=== PATIENT | male | born 1935 | race Hispanic/Latino ===

== ENCOUNTER 2017-06-28 06:30 | Day surgery (SDC) | payer MEDICARE, OTHER ==
[2017-06-28] MEDS ORDERED: NACL 0.9% 500 ML 500 ML IV SCH (07:00)
[2017-06-28 07:24] LABS: Basophils % (Auto) 0.7 % (0.0-1.8); Eosinophils % (Auto) 1.7 % (0.0-4.3); Hematocrit 38.6 % (35.5-45.6); Hemoglobin 13.1 gm/dl (11.8-15.2); Mean Corpuscular HGB Conc 34 % (32-34); Mean Corpuscular Hemoglobin 31 pg (28-32); Mean Corpuscular Volume 90 fl (84-94); Platelet Count 216 K/mm3 (140-440); Red Blood Count 4.31 M/mm3 (3.65-5.03); Red Cell Distribution Width 13.4 % (13.2-15.2); White Blood Count 8.9 K/mm3 (4.5-11.0)
[2017-06-28 07:34] LABS: INR 1.02 (0.87-1.13)
[2017-06-28 07:36] LABS: Anion Gap 16 mmol/L; BUN/Creatinine Ratio 23.33; Blood Urea Nitrogen 21 mg/dL (9-20); Calcium 8.6 mg/dL (8.4-10.2); Carbon Dioxide 23 mmol/L (22-30); Chloride 104.3 mmol/L (98-107); Glucose 115 mg/dL (75-100); Potassium 4.1 mmol/L (3.6-5.0); Sodium 139 mmol/L (137-145)
[2017-06-28] MEDS ORDERED: HEPARIN/NS 5000 UNIT/500ML(CATH LAB) 1,000 ML IR ONE (08:27)
[2017-06-28] MEDS ORDERED: NITROGLYCERIN SYRINGE 3 ML ONE (08:33)
[2017-06-28] MEDS: SUBLIMAZE ONE ×2 (08:37→08:41)
[2017-06-28] MEDS: XYLOCAINE 2% INFILTRATI ONE ×2 (08:38→08:43)
[2017-06-28] MEDS: VERSED ONE ×2 (08:38→08:41)
--- NOTE | 2017-06-28 09:47 | Cardiac Catherization Report ---
CARDIAC CATHETERIZATION REFERRING PHYSICIAN: Dr. Raj Pabon. 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 More recently, an echocardiogram at the end of May, which revealed severe aortic stenosis. He saw cardiac surgery set up for aortic valve replacement, possibly via TAVR. He is scheduled for coronary and bypass angiography in anticipation of valve replacement. Risks, benefits, alternatives discussed at length prior to obtaining informed consent. PROCEDURE IN DETAIL: The patient was brought to the catheterization lab in a postabsorptive state, prepped and draped in sterile fashion, 8 mL of 2% lidocaine used to anesthetize the right groin. A standard 5-Dominican sheath used to cannulate the right common femoral artery via modified Seldinger technique. All exchanges performed to exchange a J-tip guidewire. JL3.5 catheter used to engage left main. No dampening or ventricularization. Cineangiography performed in all projections. JR4 catheter used to cross the aortic valve under fluoroscopic guidance. Left ventriculography performed in 30 ROQUE and 30 SYRIAC projections via hand injections, catheter flushed. Manual pullback performed using continuous pressure monitoring. Next, catheter used to engage the right coronary. No dampening or ventricularization. Cineangiography performed in all projections. Next, catheter used to engage SVG to OM, angiography performed in all projections. Next, catheter used to engage the right brachiocephalic and wire was used to wire the right subclavian, LINCOLN, angiography was performed selectively. Next, a catheter was carefully removed from the brachiocephalic over a wire and used to engage the left subclavian and carefully advanced over wire, engaged the CHUA, angiography was performed in all projections. Next, catheter was removed carefully from the left subclavian and the aorta over a wire, sheath removed. Manual pressured used to achieve hemostasis. No complications. DATA: Aortic pressure: The patient remained in normal sinus rhythm/sinus bradycardia throughout the procedure. Aortic pressure is 145/80, LV pressure is 210. LVEDP of 25 mmHg. CORONARY ANATOMY: This is a right dominant system. Right coronary has a chronic total occlusion in the mid segment. The entire coronary tree is rather small in caliber and severely diseased. Left main is patent. LAD is occluded in the mid segment. Left circumflex is occluded in the mid segment. These are chronic total occlusions. There is a patent CHUA to the LAD. There is a patent SVG to the OM trunk and there is a patent LINCOLN to the right coronary. Left ventriculography demonstrates normal LV function, estimated at 55% to 60%. CONCLUSIONS: 1. Severe anvik coronary artery disease including 100% chronic total occlusion of the mid LAD, 100% chronic total occlusion of the mid left circumflex, 100% chronic total occlusion of mid right coronary, bypass angiography reveals a patent CHUA to LAD, patent LINCOLN to RCA, and patent SVG to OM trunk. 2. Preserved left ventricular systolic performance, estimated ejection fraction of 55% to 60%. 3. Severe aortic stenosis with a [id number] gradient of some 75-80 mmHg. At this point, the patient is clinically stable, will be discharged home, is already scheduled for outpatient valve surgery. Results of procedure explained in length to the patient and family. All questions and concerns were addressed. [facility]# [id number] ROSEMARY/JERRI
[2017-06-28 12:33] VITALS: BP 175/66
--- NOTE | 2017-06-28 14:18 | Short Stay Summary ---
Short Stay Documentation Date of service: 06/28/17 - History H&P: obtained from office - Allergies and Medications Current Medications: Allergies cortisone Allergy (Verified 05/26/15 07:30) STOMACH CRAMPS ezetimibe [From Vytorin] Allergy (Verified 05/26/15 07:30) Rash fluticasone Allergy (Verified 05/26/15 07:30) PROSTATE THIN URINE STREAM fluticasone propionate [From Advair Diskus] Allergy (Verified 05/26/15 07:30) PROSTATE THIN URINE STREAM meloxicam [From Mobic] Allergy (Verified 05/26/15 07:30) Rash salmeterol xinafoate [From Advair Diskus] Allergy (Verified 05/26/15 07:30) PROSTATE THIN URINE STREAM simvastatin [From Vytorin] Allergy (Verified 05/26/15 07:30) Rash sulfamethoxazole Allergy (Verified 05/26/15 07:30) Rash GLUE ON SILK AND NYLON TAPE Allergy (Uncoded 05/26/15 07:01) Rash SPIRIVA Allergy (Uncoded 05/26/15 07:01) PROSTATE THIN URINE STREAM Home Medications Medication Instructions Recorded Confirmed Last Taken Type Aspirin EC [Aspirin Enteric Coated 81 mg PO DAILY 05/26/15 06/28/17 06/28/17 07: 00 History TAB] Atenolol 50 mg PO DAILY 05/26/15 06/28/17 06/27/17 History Cholecalciferol Vit D3 [Vitamin D3] 1 each PO DAILY 05/26/15 06/28/17 06/27/17 History Clopidogrel Bisulfate [Clopidogrel] 75 mg PO DAILY 05/26/15 06/28/17 06/23/17 History Trandolapril 4 mg PO DAILY 05/26/15 06/28/17 06/27/17 History ISOSORBIDE MONOnitrate [Imdur ER] 30 mg PO DAILY 06/28/17 06/28/17 06/27/17 History Multivitamin Tab [Multiple Vitamin 1 each PO QDAY 06/28/17 06/28/17 06/27/17 History TAB (Theragran)] Active Medications Sodium Chloride (Nacl 0.9% 500 Ml) 500 mls @ 50 mls/hr IV DIRECT JOSIAH Stop: 06/28/17 16:59 Last Admin: 09/07/17 07:23 Dose: 50 mls/hr - Brief post op/procedure progress note Date of procedure: 06/28/17 Pre-op diagnosis: Post-op diagnosis: same Procedure: LHC- see cath report Anesthesia: local Estimated blood loss: none Condition: stable - Disposition Condition at discharge: Stable Disposition: DC-01 TO HOME OR SELFCARE - Discharge Diagnoses (1) Aortic stenosis Status: Chronic Qualifiers: Cardiac valve disease etiology: C (2) CAD (coronary artery disease) Status: Chronic Qualifiers: Coronary Disease-Associated Artery/Lesion type: C [place] vs. transplanted heart: N Associated angina: A (3) Hx of CABG Status: Chronic Short Stay Discharge Plan Activity: advance as tolerated Diet: low fat, low cholesterol, low salt Wound: per your surgeon's advice Follow up with: ALISA BEDOLLA MD [Primary Care Provider] - 7 Days ADRIEL MAYER MD [Staff Physician] - 7 Days Forms: CardCath PCI D/C Instructions
== END 2017-06-28 13:30 | disposition home or self-care (01) ==
LOC: CATHLABREC 06:30
PROVIDERS: ATTEND Internal Medicine
DX: I35.0 Nonrheumatic aortic (valve) stenosis (principal); I25.10 Atherosclerotic heart disease of native coronary artery without angina pectoris; I25.82 Chronic total occlusion of coronary artery; Z88.8 Allergy status to other drugs, medicaments and biological substances; Z91.09 Other allergy status, other than to drugs and biological substances; Z79.82 Long term (current) use of aspirin; Z79.01 Long term (current) use of anticoagulants; Z79.899 Other long term (current) drug therapy; Z95.1 Presence of aortocoronary bypass graft
CPT/HCPCS: 36415; 80048; 85025; 85610; 85730; 93005; 93010; 93459; J1644; J2250; J3010; J7040; Q9967

== ENCOUNTER 2019-01-27 09:18 | Emergency (ER) | payer MEDICARE, OTHER ==
[2019-01-27 09:30] VITALS: BP 140/49
--- NOTE | 2019-01-27 10:17 | Emergency Department Report ---
ED Lower Extremity HPI - General Chief Complaint: Extremity Injury, Lower Stated Complaint: RT FOOT PAIN/SWOLLEN Time Seen by Provider: 01/27/19 09:51 Source: patient Mode of arrival: Ambulatory Limitations: No Limitations - History of Present Illness Initial Comments: This is a 83-year-old male who presents to ED complaining of dry anterior and posterior foot pain for the last couple of days. This is essentially Sunday he is great creatinine child accidentally jumped on his foot. Patient's is up by Sunday he saw some swelling on the foot. Patient states he has pain to percussion of the foot as well as some redness. Patient is unsure if he sprain. He denies difficulty walking. He states pain with applied pressure to the foot he denies any loss of sensation MD Complaint: foot injury - Related Data Home Medications Medication Instructions Recorded Confirmed Last Taken AtorvaSTATin [Lipitor] 40 mg PO QHS 07/31/18 07/31/18 Unknown Ferrous Sulfate [Feosol 325 MG tab] 325 mg PO QDAY 07/31/18 07/31/18 Unknown Tamsulosin [Flomax] 0.4 mg PO QDAY 07/31/18 07/31/18 Unknown Previous Rx's Medication Instructions Recorded Last Taken Type Multivitamin Tab W-MINERAL 1 each PO QDAY tablet 08/04/18 Unknown Rx [Multiple Vitamin/Mineral (Theragran M)] Pantoprazole [Protonix TAB] 40 mg PO DAILY #30 tablet 08/04/18 Unknown Rx Acetaminophen [Acetaminophen TAB] 650 mg PO Q4H PRN #12 tablet 01/27/19 Unknown Rx Allergies Allergy/AdvReac Type Severity Reaction Status Date / Time cortisone Allergy STOMACH Verified 05/26/15 07:30 CRAMPS ezetimibe [From Vytorin] Allergy Rash Verified 05/26/15 07:30 fluticasone Allergy PROSTATE Verified 05/26/15 07:30 THIN URINE STREAM fluticasone propionate Allergy PROSTATE Verified 05/26/15 07:30 [From Advair Diskus] THIN URINE STREAM meloxicam [From Mobic] Allergy Rash Verified 05/26/15 07:30 salmeterol xinafoate Allergy PROSTATE Verified 05/26/15 07:30 [From Advair Diskus] THIN URINE STREAM simvastatin [From Vytorin] Allergy Rash Verified 05/26/15 07:30 sulfamethoxazole Allergy Rash Verified 05/26/15 07:30 GLUE ON SILK AND NYLON TAPE Allergy Rash Uncoded 05/26/15 07:01 SPIRIVA Allergy PROSTATE Uncoded 05/26/15 07:01 THIN URINE STREAM ED Review of Systems ROS: Stated complaint: RT FOOT PAIN/SWOLLEN Other details as noted in HPI Comment: All other systems reviewed and negative ED Past Medical Hx - Past Medical History Previous Medical History?: Yes Hx Hypertension: Yes 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 anemia. internal hemmrhoids - Surgical History Past Surgical History?: Yes Hx Coronary Stent: Yes (1989) Hx Open Heart Surgery: Yes (1990) Additional Surgical History: prostate, hernia,cataractOU, angioplasty, vasectomy, collar bone - Social History Smoking Status: Former Smoker Substance Use Type: None - Medications Home Medications: Home Medications Medication Instructions Recorded Confirmed Last Taken Type AtorvaSTATin [Lipitor] 40 mg PO QHS 07/31/18 07/31/18 Unknown History Ferrous Sulfate [Feosol 325 MG tab] 325 mg PO QDAY 07/31/18 07/31/18 Unknown History Tamsulosin [Flomax] 0.4 mg PO QDAY 07/31/18 07/31/18 Unknown History Multivitamin Tab W-MINERAL 1 each PO QDAY tablet 08/04/18 Unknown Rx [Multiple Vitamin/Mineral (Theragran M)] Pantoprazole [Protonix TAB] 40 mg PO DAILY #30 tablet 08/04/18 Unknown Rx Acetaminophen [Acetaminophen TAB] 650 mg PO Q4H PRN #12 tablet 01/27/19 Unknown Rx ED Physical Exam - General Limitations: No Limitations General appearance: alert, in no apparent distress - Head Head exam: Present: atraumatic, normocephalic - Eye Eye exam: Present: normal appearance - ENT ENT exam: Present: mucous membranes moist - Neck Neck exam: Present: normal inspection - Respiratory Respiratory exam: Present: normal lung sounds bilaterally. Absent: respiratory distress - Cardiovascular Cardiovascular Exam: Present: regular rate, normal rhythm. Absent: systolic murmur, diastolic murmur, rubs, gallop - GI/Abdominal GI/Abdominal exam: Present: soft, normal bowel sounds - Rectal Rectal exam: Present: deferred - Extremities Exam Extremities exam: Present: normal inspection - Back Exam Back exam: Present: normal inspection - Neurological Exam Neurological exam: Present: alert, oriented X3 - Psychiatric Psychiatric exam: Present: normal affect, normal mood - Skin Skin exam: Present: warm, dry, intact, normal color. Absent: rash ED Course Vital Signs 01/27/19 09:27 Temperature 98.8 F Pulse Rate 70 Respiratory 16 Rate Blood Pressure 140/49 O2 Sat by Pulse 97 Oximetry ED Lower Extremity MDM - Medical Decision Making 83-year-old male presents with arthralgia the right big toe of the foot Patient is able to ambulate without any problems. Mild tenderness palpation of the metatarsal joint of the week so. No deformity seen, no swelling. Vital signs are normal discussed x-ray findings patient. No acute findings on the x-ray. Patient is ambulating probably. Discuss heat therapy 3 times a day. Discussed the patient follow up with primary care physician. Critical care attestation.: If time is entered above; I have spent that time in minutes in the direct care of this critically ill patient, excluding procedure time. ED Disposition Clinical Impression: Right foot pain Disposition: - TO HOME OR SELFCARE Is pt being admited?: No Does the pt Need Aspirin: No Condition: Undetermined Instructions: Arthralgia (ED) Additional Instructions: Make sure to follow up with the primary care physician as discussed. Take all your medications as you've been prescribed. Apply heat 3 times a day to the affected toe If you have any worsening symptoms or develop new symptoms please return to ED immediately. Prescriptions: Acetaminophen [Acetaminophen TAB] 650 mg PO Q4H PRN #12 tablet PRN Reason: Pain MILD(1-3)/Fever >100.5/MARINA Referrals: [place] [Other] - 3-5 Days Forms: Work/School Release Form(ED) Time of Disposition: 11:18
--- NOTE | 2019-01-27 11:02 | XRay Report ---
Right foot: Pain near the first MP joint. AP and lateral views are included. There is extensive vascular calcification. Several surgical clips are identified in the distal medial leg. There may be mild edema around the midfoot but no focal finding. The visualized bones and joints appear generally intact and the bones are well-mineralized. Impressions: 1. Findings consistent with underlying metabolic disease such as diabetes. 2. Suspicion of mild midfoot soft tissue swelling with no focal findings in the bones or joints.
== END 2019-01-27 11:35 | disposition home or self-care (01) ==
LOC: ED 09:18
DX: M79.671 Pain in right foot (principal); M79.89 Other specified soft tissue disorders; I10 Essential (primary) hypertension; I25.2 Old myocardial infarction; M19.90 Unspecified osteoarthritis, unspecified site; Z87.891 Personal history of nicotine dependence; E78.5 Hyperlipidemia, unspecified; Z88.8 Allergy status to other drugs, medicaments and biological substances; Z88.2 Allergy status to sulfonamides; Z91.048 Other nonmedicinal substance allergy status; Z98.1 Arthrodesis status

== ENCOUNTER 2021-06-19 12:53 | Observation (INO) | payer MEDICARE, OTHER ==
[2021-06-19] MEDS ORDERED: ASPIRIN 325 MG TAB PO ONE (13:28)
--- NOTE | 2021-06-19 13:39 | Emergency Department Report ---
<PUSHPA TUCKER - Last Filed: 06/19/21 16:10> ED Chest Pain HPI - General Chief Complaint: Chest Pain Stated Complaint: PRESSURE/CHEST Time Seen by Provider: 06/19/21 13:37 - Related Data Home Medications Medication Instructions Recorded Confirmed Last Taken Ferrous Sulfate [Feosol 325 MG tab] 325 mg PO QDAY 07/31/18 06/20/21 Unknown Tamsulosin [Flomax] 0.4 mg PO QDAY 07/31/18 06/20/21 Unknown Cyanocobalamin/Folic Acid [Vitamin 1 each PO DAILY 06/20/21 06/20/21 Unknown J82-[id number] Acid Tablet] Losartan [Cozaar] 50 mg PO QDAY 06/20/21 06/20/21 Unknown Omeprazole Magnesium [Prilosec] 20 mg PO DAILY 06/20/21 06/20/21 Unknown Plavix 75 mg PO DAILY 06/20/21 06/20/21 Unknown Tolterodine [Detrol LA] 6 mg PO BID 06/20/21 06/20/21 Unknown amLODIPine 5 mg PO DAILY 06/20/21 06/20/21 Unknown Previous Rx's Medication Instructions Recorded Last Taken Type Multivitamin Tab W-MINERAL 1 each PO QDAY tablet 08/04/18 Unknown Rx [Multiple Vitamin/Mineral (Theragran M)] Aspirin [Aspirin BABY CHEW TAB] 81 mg PO QDAY #30 tab.chew 06/20/21 Unknown Rx AtorvaSTATin [Lipitor] 80 mg PO QHS #30 tab 06/20/21 Unknown Rx Finasteride [Proscar] 5 mg PO QDAY #30 tablet 06/20/21 Unknown Rx Allergies Allergy/AdvReac Type Severity Reaction Status Date / Time cortisone Allergy STOMACH Verified 06/19/21 13:51 CRAMPS ezetimibe [From Vytorin] Allergy Rash Verified 06/19/21 13:51 fluticasone Allergy PROSTATE Verified 06/19/21 13:51 THIN URINE STREAM fluticasone propionate Allergy PROSTATE Verified 06/19/21 13:51 [From Advair Diskus] THIN URINE STREAM meloxicam [From Mobic] Allergy Rash Verified 06/19/21 13:51 salmeterol xinafoate Allergy PROSTATE Verified 06/19/21 13:51 [From Advair Diskus] THIN URINE STREAM simvastatin [From Vytorin] Allergy Rash Verified 06/19/21 13:51 sulfamethoxazole Allergy Rash Verified 06/19/21 13:51 GLUE ON SILK AND NYLON TAPE Allergy Rash Uncoded 05/26/15 07:01 SPIRIVA Allergy PROSTATE Uncoded 05/26/15 07:01 THIN URINE STREAM ED Past Medical Hx - Medications Home Medications: Home Medications Medication Instructions Recorded Confirmed Last Taken Type Ferrous Sulfate [Feosol 325 MG tab] 325 mg PO QDAY 07/31/18 06/20/21 Unknown History Tamsulosin [Flomax] 0.4 mg PO QDAY 07/31/18 06/20/21 Unknown History Multivitamin Tab W-MINERAL 1 each PO QDAY tablet 08/04/18 06/20/21 Unknown Rx [Multiple Vitamin/Mineral (Theragran M)] Aspirin [Aspirin BABY CHEW TAB] 81 mg PO QDAY #30 tab.chew 06/20/21 Unknown Rx AtorvaSTATin [Lipitor] 80 mg PO QHS #30 tab 06/20/21 Unknown Rx Cyanocobalamin/Folic Acid [Vitamin 1 each PO DAILY 06/20/21 06/20/21 Unknown History J98-[id number] Acid Tablet] Finasteride [Proscar] 5 mg PO QDAY #30 tablet 06/20/21 Unknown Rx Losartan [Cozaar] 50 mg PO QDAY 06/20/21 06/20/21 Unknown History Omeprazole Magnesium [Prilosec] 20 mg PO DAILY 06/20/21 06/20/21 Unknown History Plavix 75 mg PO DAILY 06/20/21 06/20/21 Unknown History Tolterodine [Detrol LA] 6 mg PO BID 06/20/21 06/20/21 Unknown History amLODIPine 5 mg PO DAILY 06/20/21 06/20/21 Unknown History ED Course - Reevaluation(s) Reevaluation #1: 06/19/21 16:[address] Yandel Guajardo to admit to IMS for cardiac risk stratification, ekg changes will defer to inpatient team to 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, should they deem it necessary ED Medical Decision Making - Lab Data Result diagrams: 06/19/21 13:50 06/19/21 13:50 Vital Signs 06/19/21 06/19/21 06/19/21 13:22 13:23 13:51 Temperature 98.2 F 98.2 F Pulse Rate 72 72 69 Respiratory 19 18 14 Rate Blood Pressure 130/54 130/54 O2 Sat by Pulse 97 98 99 Oximetry 06/19/21 06/19/21 06/19/21 14:00 14:01 14:40 Temperature Pulse Rate 63 Respiratory 16 Rate Blood Pressure O2 Sat by Pulse 96 100 99 Oximetry Lab Results 06/19/21 06/19/21 06/19/21 Range/Units 13:50 13:50 13:55 WBC 11.2 H (4.5-11.0) K/mm3 RBC 4.15 (3.65-5.03) M/mm3 Hgb 12.9 (11.8-15.2) gm/dl Hct 37.7 (35.5-45.6) % MCV 91 (84-94) fl MCH 31 (28-32) pg MCHC 34 (32-34) % RDW 13.5 (13.2-15.2) % Plt Count 295 (140-440) K/mm3 Lymph % (Auto) 16.7 (13.4-35.0) % [place] % (Auto) 6.7 (0.0-7.3) % Eos % (Auto) 0.5 (0.0-4.3) % Baso % (Auto) 0.7 (0.0-1.8) % Lymph # (Auto) 1.9 (1.2-5.4) K/mm3 [place] # (Auto) 0.8 (0.0-0.8) K/mm3 Eos # (Auto) 0.1 (0.0-0.4) K/mm3 Baso # (Auto) 0.1 (0.0-0.1) K/mm3 Seg Neutrophils % 75.4 H (40.0-70.0) % Seg Neutrophils # 8.4 H (1.8-7.7) K/mm3 PT 14.0 (12.2-14.9) Sec. INR 1.02 (0.87-1.13) APTT 29.1 (24.2-36.6) Sec. D-Dimer 255.13 H (0-234) ng/mlDDU Sodium 136 L (137-145) mmol/L Potassium 4.4 (3.6-5.0) mmol/L Chloride 103.5 (98-107) mmol/L Carbon Dioxide 25 (22-30) mmol/L Anion Gap 12 mmol/L BUN 19 (9-20) mg/dL Creatinine 1.1 (0.8-1.3) mg/dL Estimated GFR > 60 ml/min BUN/Creatinine Ratio 17 % Glucose 111 H (75-100) mg/dL Calcium 9.3 (8.4-10.2) mg/dL Total Bilirubin 0.40 (0.1-1.2) mg/dL AST 19 (5-40) units/L ALT 15 (7-56) units/L Alkaline Phosphatase 75 (35-129) units/L Troponin T < 0.010 (0.00-0.029) ng/mL Total Protein 6.6 (6.3-8.2) g/dL Albumin 3.9 (3.9-5) g/dL Albumin/Globulin Ratio 1.4 % - EKG Data -: E[facility] Interpreted by [facility] - Radiology Data Radiology results: pending, report reviewed, image reviewed CTA CHEST WITH IV CONTRAST INDICATION: chest pain 100 ML OMNI 350. TECHNIQUE: Axial CT images were obtained through the chest after injection of 100 cc IV contrast. 3 plane MIP reconstructions were produced. All CT scans at this location are performed using CT dose reduction for ALARA by means of automated exposure control. COMPARISON: None available. FINDINGS: PULMONARY ARTERIES: No pulmonary emboli. THORACIC AORTA: Moderate vascular calcifications nonaneurysmal thoracic aorta HEART: Sternotomy, CABG and TAVR CORONARY ARTERIES: No significant calcification. PLEURA: No pleural effusion. No pneumothorax. LYMPH NODES: No significant adenopathy. LUNGS: No acute air space or interstitial dis ease. ADDITIONAL FINDINGS: None. UPPER ABDOMEN: No acute findings. Multiple calcified splenic granulomas SKELETAL STRUCTURES: No significant osseous abnormality. IMPRESSION: 1. No CT evidence for pulmonary embolism. 2. No acute findings. Signer Name: Rigo Buitrago MD Signed: 06/19/2021 2:43 PM Workstation Name: [id number] CHEST 2 VIEWS INDICATION / CLINICAL INFORMATION: chest pain/pressure. COMPARISON: None available. FINDINGS: SUPPORT DEVICES: None. HEART / MEDIASTINUM: Sternotomy, CABG and TAVR. Cardiac silhouette normal in size. Calcified right perihilar granulomas. LUNGS / PLEURA: Scattered calcified granulomas both lower lobes. No significant pulmonary or pleural abnormality. No pneumothorax. ADDITIONAL FINDINGS: No significant additional findings. IMPRESSION: 1. No acute findings. Signer Name: Riog Buitrago MD Signed: 06/19/2021 12:52 PM Workstation Name: [id number] ED Disposition Clinical Impression: Aortic stenosis, Acute chest pain CAD (coronary artery disease) Qualifiers: Coronary Disease-Associated Artery/Lesion type: [place] artery [place] vs. transplanted heart: [place] heart Disposition: ADMITTED INPATIENT Is pt being admited?: Yes Does the pt Need Aspirin: Yes Condition: Stable <ANITA CASTELLON Y. - Last Filed: 06/21/21 12:33> ED Chest Pain HPI - General Source: patient Mode of arrival: Ambulatory Limitations: No Limitations - History of Present Illness Initial Comments: 86-year-old male, history of CAD with CABG, aortic valve replacement, presents to ED with intermittent chest pain x3 days. Patient states he "worked a little too hard" in the yard last week. He reports onset of left arm pain 3 days ago. Patient states he thought it was just arthritis, so he went to play golf. States the pain then moved from the left arm to the chest, he began experiencing chest pressure. Patient reports alleviation of pressure with rest, becomes worse with exertion. He denies any shortness of breath, nausea or vomiting, diaphoresis. Patient denies tobacco use. He denies any leg pain or swelling. Denies any cough or fever. Patient is fully vaccinated against COVID-19. 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 ABRAHAM Complaint: chest pain -: days(s) (3) Onset: during exertion Pain Location: substernal Pain Radiation: none Severity: moderate Quality: pressure Consistency: intermittent Improves With: rest Worsens With: exertion re: denies: nausea, vomting, diaphoresis, dyspnea Other Symptoms: denies: leg swelling Heart Score - HEART Score History: Highly suspicious EKG: Non-specific Age: > 65 Risk factors: > 3 risk factors or hx of atherosclerotic disease Troponin: < normal limit HEART Score: 7 - EKG Read Time Time EKG Completed: 13:30 EKG Read Time: 13:33 ED Review of Systems ROS: Stated complaint: PRESSURE/CHEST Other details as noted in HPI Comment: All other systems reviewed and negative Constitutional: denies: chills, fever Respiratory: denies: cough, shortness of breath Cardiovascular: chest pain Gastrointestinal: denies: nausea, vomiting Musculoskeletal: other (Denies leg pain and swelling) ED Past Medical Hx - Past Medical History Hx Hypertension: Yes 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 anemia. internal hemmrhoids - Surgical History Past Surgical History?: Yes Hx Coronary Stent: Yes (1989) Hx Open Heart Surgery: Yes (1990) Additional Surgical History: prostate, hernia,cataractOU, angioplasty, vasectomy, collar bone - Social History Smoking Status: Former Smoker Substance Use Type: Alcohol ED Physical Exam - General Limitations: No Limitations General appearance: alert, in no apparent distress - Head Head exam: Present: atraumatic, normocephalic - Eye Eye exam: Present: normal appearance, EOMI - ENT ENT exam: Present: mucous membranes moist - Neck Neck exam: Present: normal inspection - Respiratory Respiratory exam: Present: normal lung sounds bilaterally. Absent: respiratory distress - Cardiovascular Cardiovascular Exam: Present: regular rate, normal rhythm - GI/Abdominal GI/Abdominal exam: Present: soft. Absent: distended, tenderness - Extremities Exam Extremities exam: Present: normal inspection. Absent: pedal edema, calf tenderness - Neurological Exam Neurological exam: Present: alert, oriented X3 - Psychiatric Psychiatric exam: Present: normal affect, normal mood - Skin Skin exam: Present: warm, dry, intact, normal color ED Course Vital Signs 06/19/21 06/19/21 06/19/21 13:22 13:23 13:51 Temperature 98.2 F 98.2 F Pulse Rate 72 72 69 Respiratory 19 18 14 Rate Blood Pressure 130/54 130/54 O2 Sat by Pulse 97 98 99 Oximetry 06/19/21 06/19/21 06/19/21 14:00 14:01 14:40 Temperature Pulse Rate 63 Respiratory 16 Rate Blood Pressure O2 Sat by Pulse 96 100 99 Oximetry 06/19/21 06/19/21 06/19/21 15:00 15:30 16:00 Temperature Pulse Rate Respiratory Rate Blood Pressure 152/50 152/50 152/50 O2 Sat by Pulse 99 99 98 Oximetry 06/19/21 06/19/21 06/19/21 16:30 17:00 17:30 Temperature Pulse Rate 77 Respiratory 14 Rate Blood Pressure 161/70 176/64 182/61 O2 Sat by Pulse 88 98 98 Oximetry 06/19/21 06/19/21 06/19/21 18:00 18:30 19:00 Temperature Pulse Rate 74 77 70 Respiratory 15 16 15 Rate Blood Pressure 182/61 182/61 182/61 O2 Sat by Pulse 99 99 99 Oximetry 06/19/21 06/19/21 06/19/21 19:30 20:00 20:30 Temperature Pulse Rate 68 68 78 Respiratory 12 13 13 Rate Blood Pressure 182/61 182/61 182/61 O2 Sat by Pulse 99 99 99 Oximetry ED Medical Decision Making - Lab Data Result diagrams: 06/20/21 02:43 06/20/21 02:43 - EKG Data -: EKG Interpreted by [facility] EKG shows normal: sinus rhythm, ST-T waves Rate: normal - EKG Data Interpretation: other (RBBB, old inferior infarct, prolonged NM) - Medical Decision Making 86-year-old male, history of CAD, aortic valve replacement, presents to ED with chest pain. Patient reports pain is exertional, substernal, with some associated left arm pain as well. EKG shows new right bundle branch block not present compared to EKG from 3 years ago. Troponin is negative. D-dimer was sent due to presence of right bundle branch block. D-dimer elevated, so CTA was ordered. Patient will require admission duration of his chest pain. Patient has been signed out to Dr. Tucker to follow-up on CTA results and admit to hospitalist. - Differential Diagnosis ACS, PE, pneumonia Critical care attestation.: If time is entered above; I have spent that time in minutes in the direct care of this critically ill patient, excluding procedure time.
--- NOTE | 2021-06-19 13:57 | XRay Report ---
CHEST 2 VIEWS INDICATION / CLINICAL INFORMATION: chest pain/pressure. COMPARISON: None available. FINDINGS: SUPPORT DEVICES: None. HEART / MEDIASTINUM: Sternotomy, CABG and TAVR. Cardiac silhouette normal in size. Calcified right pe rihilar granulomas. LUNGS / PLEURA: Scattered calcified granulomas both lower lobes. No significant pulmonary or pleural abnormality. No pneumothorax. ADDITIONAL FINDINGS: No significant additional findings. IMPRESSION: 1. No acute findings. Signer Name: Rigo Buitrago MD Signed: 06/19/2021 1:52 PM Workstation Name: [id number]
[2021-06-19 14:31] LABS: Basophils # (Auto) 0.1 K/mm3 (0.0-0.1); Basophils % (Auto) 0.7 % (0.0-1.8); Eosinophils # (Auto) 0.1 K/mm3 (0.0-0.4); Eosinophils % (Auto) 0.5 % (0.0-4.3); Hematocrit 37.7 % (35.5-45.6); Hemoglobin 12.9 gm/dl (11.8-15.2); Lymphocytes # (Auto) 1.9 K/mm3 (1.2-5.4); Lymphocytes % (Auto) 16.7 % (13.4-35.0); Mean Corpuscular HGB Conc 34 % (32-34); Mean Corpuscular Volume 91 fl (84-94); Monocytes # (Auto) 0.8 K/mm3 (0.0-0.8); Monocytes % (Auto) 6.7 % (0.0-7.3); Platelet Count 295 K/mm3 (140-440); Red Blood Count 4.15 M/mm3 (3.65-5.03); Red Cell Distribution Width 13.5 % (13.2-15.2)
[2021-06-19 14:42] LABS: INR 1.02 (0.87-1.13)
[2021-06-19 14:43] LABS: Partial Thromboplastin Time 29.1 Sec. (24.2-36.6)
[2021-06-19 14:52] LABS: Alanine Aminotransferase 15 units/L (7-56); Albumin 3.9 g/dL (3.9-5); BUN/Creatinine Ratio 17; Blood Urea Nitrogen 19 mg/dL (9-20); Calcium 9.3 mg/dL (8.4-10.2); Hemolysis Index 5
--- NOTE | 2021-06-19 15:48 | Cat Scan Report ---
CTA CHEST WITH IV CONTRAST INDICATION: chest pain 100 ML OMNI 350. TECHNIQUE: Axial CT images were obtained through the chest after injection of 100 cc IV contrast. 3 plane MIP re constructions were produced. All CT scans at this location are performed using CT dose reduction for ALARA by means of automated exposure control. COMPARISON: None available. FINDINGS: PULMONARY ARTERIES: No pulmonary emboli. THORACIC AORTA: Moderate vascular calcifications nonaneurysmal thoracic aorta HEART: Sternotomy, CABG and TAVR CORONARY ARTERIES: No significant calcification. PLEURA: No pleural effusion. No pneumothorax. LYMPH NODES: No significant adenopathy. LUNGS: No acute air space or interstitial disease. ADDITIONAL FINDINGS: None. UPPER ABDOMEN: No acute findings. Multiple calcified splenic granulomas SKELETAL STRUCTURES: No significant osseous abnormality. IMPRESSION: 1. No CT evidence for pulmonary embolism. 2. No acute findings. Signer Name: Rigo Buitrago MD Signed: 06/19/2021 3:43 PM Workstation Name: [id number]
[2021-06-19] MEDS ORDERED: ACETAMINOPHEN 325 MG TAB PO PRN ×2 (22:28→22:30)
[2021-06-19] MEDS ORDERED: ONDANSETRON 4 MG/2 ML INJ IV PRN (22:30)
[2021-06-19] MEDS ORDERED: oxyCODONE /ACETAMINOPHEN 5-325MG TAB PO PRN (22:30)
[2021-06-19] MEDS ORDERED: HYDROmorphone 1 MG/1 ML INJ IV PRN (22:30)
--- NOTE | 2021-06-19 22:35 | History and Physical Report ---
History of Present Illness Date of examination: 06/19/21 Date of admission: 06/19/21 17:29 Chief complaint: Chest pain for 3 days History of present illness: 86-year-old male with history of coronary artery disease, hyperlipidemia, anemia, GERD, BPH and recent aortic valve replacement through the femoral artery in 2017 comes in for chest pain of 3 days duration. Chest pain is intermittent and radiating to her left arm. Chest pain is about 5 on a scale of 1-10. Patient went to play golf and her left arm pain moved to the chest increasing is retrosternal chest pressure. Chest pressure is relieved with rest and becomes worse with exertion. No nausea vomiting or diaphoresis. No shortness of breath. Patient is fully vaccinated against Covid. Pleasant male. Follows with [facility] with Dr. Pabon Heart Score - HEART Score History: Highly suspicious EKG: Non-specific Age: > 65 Risk factors: > 3 risk factors or hx of atherosclerotic disease Troponin: < normal limit HEART Score: 7 - Past Medical History --Hypertension: Yes --Heart Attack/AMI: Yes --Arthritis: Yes (generalized) --Additional medical history: hyperlipidema. anemia. internal hemmrhoids - Surgical History Past Surgical History?: Yes --Coronary Stent: Yes (1989) --Open Heart Surgery: Yes (1990) --Additional Surgical History: prostate, hernia,cataractOU, angioplasty, vasectomy, collar bone - Social History Smoking Status: Former Smoker Substance Use Type: Alcohol - Medications Home Medications: Home Medications Medication Instructions Recorded Confirmed Last Taken Type AtorvaSTATin [Lipitor] 40 mg PO QHS 07/31/18 07/31/18 Unknown History Ferrous Sulfate [Feosol 325 MG tab] 325 mg PO QDAY 07/31/18 07/31/18 Unknown History Tamsulosin [Flomax] 0.4 mg PO QDAY 07/31/18 07/31/18 Unknown History Multivitamin Tab W-MINERAL 1 each PO QDAY tablet 08/04/18 Unknown Rx [Multiple Vitamin/Mineral (Theragran M)] Pantoprazole [Protonix TAB] 40 mg PO DAILY #30 tablet 08/04/18 Unknown Rx Acetaminophen [Acetaminophen TAB] 650 mg PO Q4H PRN #12 tablet 01/27/19 Unknown Rx Review of Systems Comment: All other systems reviewed and negative Constitutional: denies: chills, fever Respiratory: denies: cough, shortness of breath Cardiovascular: chest pain Gastrointestinal: denies: nausea, vomiting Musculoskeletal: other (Denies leg pain and swelling) Medications and Allergies Allergies Allergy/AdvReac Type Severity Reaction Status Date / Time cortisone Allergy STOMACH Verified 06/19/21 13:51 CRAMPS ezetimibe [From Vytorin] Allergy Rash Verified 06/19/21 13:51 fluticasone Allergy PROSTATE Verified 06/19/21 13:51 THIN URINE STREAM fluticasone propionate Allergy PROSTATE Verified 06/19/21 13:51 [From Advair Diskus] THIN URINE STREAM meloxicam [From Mobic] Allergy Rash Verified 06/19/21 13:51 salmeterol xinafoate Allergy PROSTATE Verified 06/19/21 13:51 [From Advair Diskus] THIN URINE STREAM simvastatin [From Vytorin] Allergy Rash Verified 06/19/21 13:51 sulfamethoxazole Allergy Rash Verified 06/19/21 13:51 GLUE ON SILK AND NYLON TAPE Allergy Rash Uncoded 05/26/15 07:01 SPIRIVA Allergy PROSTATE Uncoded 05/26/15 07:01 THIN URINE STREAM Home Medications Medication Instructions Recorded Confirmed Last Taken Type AtorvaSTATin [Lipitor] 40 mg PO QHS 07/31/18 07/31/18 Unknown History Ferrous Sulfate [Feosol 325 MG tab] 325 mg PO QDAY 07/31/18 07/31/18 Unknown History Tamsulosin [Flomax] 0.4 mg PO QDAY 07/31/18 07/31/18 Unknown History Multivitamin Tab W-MINERAL 1 each PO QDAY tablet 08/04/18 Unknown Rx [Multiple Vitamin/Mineral (Theragran M)] Pantoprazole [Protonix TAB] 40 mg PO DAILY #30 tablet 08/04/18 Unknown Rx Acetaminophen [Acetaminophen TAB] 650 mg PO Q4H PRN #12 tablet 01/27/19 Unknown Rx Exam - Constitutional Vitals: Temp Pulse Resp BP Pulse Ox 97.7 F 65 16 163/57 96 06/19/21 21:09 06/19/21 21:09 06/19/21 21:09 06/19/21 21:09 06/19/21 21:09 General appearance: Present: no acute distress, well-nourished - EENT Eyes: Present: PERRL ENT: hearing intact, clear oral mucosa - Neck Neck: Present: supple, normal ROM - Respiratory Respiratory effort: normal Respiratory: bilateral: CTA - Cardiovascular Heart rate: 78 Rhythm: regular Heart Sounds: Present: S1 & S2. Absent: rub, click - Extremities Extremities: pulses symmetrical, No edema Peripheral Pulses: within normal limits - Abdominal General gastrointestinal: Present: soft, non-tender, non-distended, normal bowel sounds Male genitourinary: Present: normal - Integumentary Integumentary: Present: clear, warm, dry - Musculoskeletal Musculoskeletal: gait normal, strength equal bilaterally - Psychiatric Psychiatric: appropriate mood/affect, intact judgment & insight - Neurologic Neurologic: CNII-XII intact, moves all extremities HEART Score - HEART Score EKG: Non-specific Age: > 65 Risk factors: > 3 risk factors or hx of atherosclerotic disease Troponin: Troponin T < 0.010 ng/mL (0.00-0.029) 06/19/21 19:24 Troponin: < normal limit Results - Labs CBC & Chem 7: 06/20/21 02:43 06/20/21 02:43 Labs: Laboratory Last Values WBC 11.2 K/mm3 (4.5-11.0) H 06/19/21 13:50 RBC 4.15 M/mm3 (3.65-5.03) 06/19/21 13:50 Hgb 12.9 gm/dl (11.8-15.2) 06/19/21 13:50 Hct 37.7 % (35.5-45.6) 06/19/21 13:50 MCV 91 fl (84-94) 06/19/21 13:50 MCH 31 pg (28-32) 06/19/21 13:50 MCHC 34 % (32-34) 06/19/21 13:50 RDW 13.5 % (13.2-15.2) 06/19/21 13:50 Plt Count 295 K/mm3 (140-440) 06/19/21 13:50 Lymph % (Auto) 16.7 % (13.4-35.0) 06/19/21 13:50 [place] % (Auto) 6.7 % (0.0-7.3) 06/19/21 13:50 Eos % (Auto) 0.5 % (0.0-4.3) 06/19/21 13:50 Baso % (Auto) 0.7 % (0.0-1.8) 06/19/21 13:50 Lymph # (Auto) 1.9 K/mm3 (1.2-5.4) 06/19/21 13:50 [place] # (Auto) 0.8 K/mm3 (0.0-0.8) 06/19/21 13:50 Eos # (Auto) 0.1 K/mm3 (0.0-0.4) 06/19/21 13:50 Baso # (Auto) 0.1 K/mm3 (0.0-0.1) 06/19/21 13:50 Seg Neutrophils % 75.4 % (40.0-70.0) H 06/19/21 13:50 Seg Neutrophils # 8.4 K/mm3 (1.8-7.7) H 06/19/21 13:50 PT 14.0 Sec. (12.2-14.9) 06/19/21 13:55 INR 1.02 (0.87-1.13) 06/19/21 13:55 APTT 29.1 Sec. (24.2-36.6) 06/19/21 13:55 D-Dimer 255.13 ng/mlDDU (0-234) H 06/19/21 13:55 Sodium 136 mmol/L (137-145) L 06/19/21 13:50 Potassium 4.4 mmol/L (3.6-5.0) 06/19/21 13:50 Chloride 103.5 mmol/L (98-107) 06/19/21 13:50 Carbon Dioxide 25 mmol/L (22-30) 06/19/21 13:50 Anion Gap 12 mmol/L 06/19/21 13:50 BUN 19 mg/dL (9-20) 06/19/21 13:50 Creatinine 1.1 mg/dL (0.8-1.3) 06/19/21 13:50 Estimated GFR > 60 ml/min 06/19/21 13:50 BUN/Creatinine Ratio 17 % 06/19/21 13:50 Glucose 111 mg/dL (75-100) H 06/19/21 13:50 Calcium 9.3 mg/dL (8.4-10.2) 06/19/21 13:50 Total Bilirubin 0.40 mg/dL (0.1-1.2) 06/19/21 13:50 AST 19 units/L (5-40) 06/19/21 13:50 ALT 15 units/L (7-56) 06/19/21 13:50 Alkaline Phosphatase 75 units/L (35-129) 06/19/21 13:50 Troponin T < 0.010 ng/mL (0.00-0.029) 06/19/21 19:24 Total Protein 6.6 g/dL (6.3-8.2) 06/19/21 13:50 Albumin 3.9 g/dL (3.9-5) 06/19/21 13:50 Albumin/Globulin Ratio 1.4 % 06/19/21 13:50 - Imaging and Cardiology EKG: report reviewed (EKG with no acute ST-T wave changes) Imaging and Cardiology: Chest x-ray No acute findings Chest CTA No CT evidence of pulmonary embolism No acute findings Dorman/IV: Voiding Method Urinal Assessment and Plan Advance Directives: Yes (Full code) VTE prophylaxis?: Chemical Plan of care discussed with patient/family: Yes - Patient Problems (1) Acute coronary syndrome Current Visit: Yes Status: Acute Plan to address problem: For Lexiscan in the morning Serial cardiac enzymes (2) Coronary artery disease Current Visit: Yes Status: Chronic Qualifiers: Coronary Disease-Associated Artery/Lesion type: [place] artery [place] vs. transplanted heart: [place] heart Plan to address problem: Patient had CABG in the past Continue aspirin and statins (3) Hyperlipidemia Current Visit: Yes Status: Chronic Qualifiers: Hyperlipidemia type: mixed hyperlipidemia Qualified Code(s): E78.2 - Mixed hyperlipidemia Plan to address problem: On statins-Lipitor 40 mg p.o. daily (4) BPH (benign prostatic hyperplasia) Current Visit: Yes Status: Chronic Qualifiers: Lower urinary tract symptom presence: symptoms present Plan to address problem: Continue Flomax (5) GERD (gastroesophageal reflux disease) Current Visit: Yes Status: Acute (6) GERD (gastroesophageal reflux disease) Current Visit: Yes Status: Chronic Plan to address problem: On PPIs (7) Anemia Current Visit: Yes Status: Chronic Plan to address problem: On ferrous gluconate (8) DVT prophylaxis Current Visit: Yes Status: Acute Plan to address problem: On anticoagulation and GI prophylaxis
[2021-06-20 03:47] LABS: Basophils # (Auto) 0.1 K/mm3 (0.0-0.1); Basophils % (Auto) 0.9 % (0.0-1.8); Eosinophils # (Auto) 0.2 K/mm3 (0.0-0.4); Eosinophils % (Auto) 1.2 % (0.0-4.3); Hematocrit 40.3 % (35.5-45.6); Hemoglobin 13.5 gm/dl (11.8-15.2); Lymphocytes # (Auto) 1.9 K/mm3 (1.2-5.4); Mean Corpuscular HGB Conc 34 % (32-34); Mean Corpuscular Volume 91 fl (84-94); Monocytes # (Auto) 0.9 K/mm3 (0.0-0.8); Monocytes % (Auto) 6.9 % (0.0-7.3); Platelet Count 272 K/mm3 (140-440); Red Blood Count 4.42 M/mm3 (3.65-5.03); Red Cell Distribution Width 13.5 % (13.2-15.2)
[2021-06-20 03:54] LABS: Alanine Aminotransferase 15 units/L (7-56); Albumin 3.8 g/dL (3.9-5); BUN/Creatinine Ratio 16; Blood Urea Nitrogen 18 mg/dL (9-20); Calcium 9.5 mg/dL (8.4-10.2); Hemolysis Index 4
[2021-06-20] MEDS ORDERED: REGADENOSON 0.4 MG/5 ML INJ IV ONE (07:37)
--- NOTE | 2021-06-20 08:45 | Consultation ---
History of Present Illness Consult date: 06/20/21 Requesting physician: JONY GARCIA Consult reason: chest pain History of present illness: 86-year-old male with history of bypass surgery showed patent bypass grafts in 2015 had aortic valve replacement via TVAR in 2017 Has hypertension hyperlipidemia coronary arterial disease is a very active person. Played golf and walked a mile. Patient has some chest discomfort beginning of his mile walk that got better with activity. But has been persistent in nature similar to what he had prior to his valve replacement. Cardiac enzymes have been negative. Denies any fever chill has been vaccinated for COVID-19. This morning patient symptoms have almost resolved still some mild chest pressure that sometimes would worsen with touching of the chest wall with EKG leads. Past History Past Medical History: CAD (bypass), hypertension, hyperlipidemia Past Surgical History: CABG, Other (tavr in 2017) Social history: denies: smoking, alcohol abuse, prescription drug abuse Family history: denies: no significant family history Medications and Allergies Allergies Allergy/AdvReac Type Severity Reaction Status Date / Time cortisone Allergy STOMACH Verified 06/19/21 13:51 CRAMPS ezetimibe [From Vytorin] Allergy Rash Verified 06/19/21 13:51 fluticasone Allergy PROSTATE Verified 06/19/21 13:51 THIN URINE STREAM fluticasone propionate Allergy PROSTATE Verified 06/19/21 13:51 [From Advair Diskus] THIN URINE STREAM meloxicam [From Mobic] Allergy Rash Verified 06/19/21 13:51 salmeterol xinafoate Allergy PROSTATE Verified 06/19/21 13:51 [From Advair Diskus] THIN URINE STREAM simvastatin [From Vytorin] Allergy Rash Verified 06/19/21 13:51 sulfamethoxazole Allergy Rash Verified 06/19/21 13:51 GLUE ON SILK AND NYLON TAPE Allergy Rash Uncoded 05/26/15 07:01 SPIRIVA Allergy PROSTATE Uncoded 05/26/15 07:01 THIN URINE STREAM Home Medications Medication Instructions Recorded Confirmed Last Taken Type Ferrous Sulfate [Feosol 325 MG tab] 325 mg PO QDAY 07/31/18 06/20/21 Unknown History Tamsulosin [Flomax] 0.4 mg PO QDAY 07/31/18 06/20/21 Unknown History Multivitamin Tab W-MINERAL 1 each PO QDAY tablet 08/04/18 06/20/21 Unknown Rx [Multiple Vitamin/Mineral (Theragran M)] Acetaminophen [Acetaminophen TAB] 650 mg PO Q4H PRN #12 tablet 01/27/19 06/20/21 Unknown Rx Cyanocobalamin/Folic Acid [Vitamin 1 each PO DAILY 06/20/21 06/20/21 Unknown History A70-Cohpq Acid Tablet] Losartan [Cozaar] 50 mg PO QDAY 06/20/21 06/20/21 Unknown History Omeprazole Magnesium [Prilosec] 20 mg PO DAILY 06/20/21 06/20/21 Unknown History Plavix 75 mg PO DAILY 06/20/21 06/20/21 Unknown History Tolterodine [Detrol LA] 6 mg PO BID 06/20/21 06/20/21 Unknown History amLODIPine 5 mg PO DAILY 06/20/21 06/20/21 Unknown History Active Meds: Active Medications Acetaminophen (Acetaminophen 325 Mg Tab) 650 mg PO Q4H PRN PRN Reason: Pain MILD(1-3)/Fever >100.5/MARINA Atorvastatin Calcium (Atorvastatin 40 Mg Tab) 40 mg PO QHS JOSIAH Enoxaparin Sodium (Enoxaparin 40 Mg/0.4 Ml Inj) 40 mg SUB-Q QDAY JOSIAH Ferrous Sulfate (Ferrous Sulfate 325 Mg Tab) 325 mg PO QDAY JOSIAH Hydromorphone HCl (Hydromorphone 1 Mg/1 Ml Inj) 0.5 mg IV Q3H PRN PRN Reason: Pain , Severe (7-10) Ondansetron HCl (Ondansetron 4 Mg/2 Ml Inj) 4 mg IV Q8H PRN PRN Reason: Nausea And Vomiting Oxycodone/Acetaminophen (Oxycodone /Acetaminophen 5-325mg Tab) 1 tab PO Q6H PRN PRN Reason: Pain, Moderate (4-6) Pantoprazole Sodium (Pantoprazole 40 Mg Tab) 40 mg PO DAILY JOSIAH Sodium Chloride (Sodium Chloride 0.9% 10 Ml Flush Syringe) 10 ml IV BID JOSIAH Sodium Chloride (Sodium Chloride 0.9% 10 Ml Flush Syringe) 10 ml IV PRN PRN PRN Reason: LINE FLUSH Tamsulosin HCl (Tamsulosin 0.4 Mg Cap) 0.4 mg PO QDAY JOSIAH Review of Systems All systems: negative (as per hpi) Physical Examination Vital Signs Temp Pulse Resp BP Pulse Ox 98.2 F 72 19 130/54 97 06/19/21 13:22 06/19/21 13:22 06/19/21 13:22 06/19/21 13:22 06/19/21 13:22 General appearance: no acute distress, well-nourished HEENT: Positive: PERRL, Mucus Membranes Moist Neck: Positive: neck supple, trachea midline Cardiac: Positive: Reg Rate and Rhythm, S1/S2. Negative: Audible Murmur Lungs: Positive: clear to auscultation, Normal Breath Sounds Neuro: Positive: Grossly Intact Abdomen: Positive: Soft, Active Bowel Sounds. Negative: Tender, Distended Male genitourinary: Positive: normal Skin: Positive: Clear Incision: Cardiac Cath Site Musculoskeletal: No Pain, Normal Range of Motion Extremities: Present: normal. Absent: edema Results 06/20/21 02:43 06/20/21 02:43 Cardiac Enzymes 06/19/21 06/20/21 06/20/21 Range/Units 13:50 02:43 02:43 AST 19 17 (5-40) units/L CK-MB (CK-2) 3.0 (0.0-4.0) ng/mL Coagulation 06/19/21 Range/Units 13:55 PT 14.0 (12.2-14.9) Sec. INR 1.02 (0.87-1.13) APTT 29.1 (24.2-36.6) Sec. CBC 06/19/21 06/20/21 Range/Units 13:50 02:43 WBC 11.2 H 12.6 H (4.5-11.0) K/mm3 RBC 4.15 4.42 (3.65-5.03) M/mm3 Hgb 12.9 13.5 (11.8-15.2) gm/dl Hct 37.7 40.3 (35.5-45.6) % Plt Count 295 272 (140-440) K/mm3 Lymph # (Auto) 1.9 1.9 (1.2-5.4) K/mm3 [place] # (Auto) 0.8 0.9 H (0.0-0.8) K/mm3 Eos # (Auto) 0.1 0.2 (0.0-0.4) K/mm3 Baso # (Auto) 0.1 0.1 (0.0-0.1) K/mm3 Comprehensive Metabolic Panel 06/19/21 06/20/21 Range/Units 13:50 02:43 Sodium 136 L 141 (137-145) mmol/L Potassium 4.4 4.2 (3.6-5.0) mmol/L Chloride 103.5 105.2 (98-107) mmol/L Carbon Dioxide 25 27 (22-30) mmol/L BUN 19 18 (9-20) mg/dL Creatinine 1.1 1.1 (0.8-1.3) mg/dL Glucose 111 H 99 (75-100) mg/dL Calcium 9.3 9.5 (8.4-10.2) mg/dL AST 19 17 (5-40) units/L ALT 15 15 (7-56) units/L Alkaline Phosphatase 75 76 (35-129) units/L Total Protein 6.6 6.6 (6.3-8.2) g/dL Albumin 3.9 3.8 L (3.9-5) g/dL - Imaging and Cardiology Echo: pending EKG interpretations - Telemetry EKG Rhythm: Sinus Rhythm (nsr rbbb) Assessment and Plan stress test showed normal myocardial perfusion and normal lv function and chest pain free, atypical chest pain possible gi, cont current meds and followup with dr pierre in one week - Patient Problems (1) S/p TAVR (transcatheter aortic valve replacement), bioprosthetic Current Visit: Yes Status: Chronic (2) Acute chest pain Current Visit: Yes Status: Acute (3) GERD (gastroesophageal reflux disease) Current Visit: Yes Status: Acute (4) BPH (benign prostatic hyperplasia) Current Visit: Yes Status: Chronic Qualifiers: Lower urinary tract symptom presence: symptoms present (5) Coronary artery disease Current Visit: Yes Status: Chronic Qualifiers: Coronary Disease-Associated Artery/Lesion type: [place] artery [place] vs. transplanted heart: [place] heart (6) HTN (hypertension) Current Visit: No Status: Chronic (7) Hx of CABG Current Visit: No Status: Chronic (8) Hyperlipidemia Current Visit: No Status: Chronic Qualifiers: Hyperlipidemia type: mixed hyperlipidemia Qualified Code(s): E78.2 - Mixed hyperlipidemia
[2021-06-20] MEDS ORDERED: PANTOPRAZOLE 40 MG TAB PO SCH (10:00)
[2021-06-20] MEDS ORDERED: FERROUS SULFATE 325 MG TAB PO SCH (10:00)
[2021-06-20] MEDS ORDERED: FINASTERIDE 5 MG TAB PO SCH (10:00)
[2021-06-20] MEDS ORDERED: LOSARTAN 50 MG TAB PO SCH (10:00)
[2021-06-20] MEDS ORDERED: ENOXAPARIN 40 MG/0.4 ML INJ SUB-Q SCH (10:00)
[2021-06-20] MEDS ORDERED: TAMSULOSIN 0.4 MG CAP PO SCH (10:00)
[2021-06-20] MEDS ORDERED: ASPIRIN 81 MG TAB CHEW PO SCH (10:00)
[2021-06-20] MEDS ORDERED: OXYBUTYNIN 5 MG TAB PO SCH (10:00)
[2021-06-20] MEDS ORDERED: CLOPIDOGREL 75 MG TAB PO SCH (10:00)
[2021-06-20] MEDS ORDERED: amLODIPine 5 MG TAB PO SCH (10:00)
--- NOTE | 2021-06-20 10:53 | Progress Note ---
Assessment and Plan Assessment and plan: - Patient Problems (1) Acute coronary syndrome Current Visit: Yes Status: Acute Plan to address problem: For Lexiscan in the morning Serial cardiac enzymes (2) Coronary artery disease Current Visit: Yes Status: Chronic Qualifiers: Coronary Disease-Associated Artery/Lesion type: [place] artery [place] vs. transplanted heart: [place] heart Plan to address problem: Patient had CABG in the past Continue aspirin and statins (3) Hyperlipidemia Current Visit: Yes Status: Chronic Qualifiers: Hyperlipidemia type: mixed hyperlipidemia Qualified Code(s): E78.2 - Mixed hyperlipidemia Plan to address problem: On statins-Lipitor 40 mg p.o. daily (4) BPH (benign prostatic hyperplasia) Current Visit: Yes Status: Chronic Qualifiers: Lower urinary tract symptom presence: symptoms present Plan to address problem: Continue Flomax (5) GERD (gastroesophageal reflux disease) Current Visit: Yes Status: Acute (6) GERD (gastroesophageal reflux disease) Current Visit: Yes Status: Chronic Plan to address problem: On PPIs (7) Anemia Current Visit: Yes Status: Chronic Plan to address problem: On ferrous gluconate (8) DVT prophylaxis Current Visit: Yes Status: Acute Plan to address problem: On anticoagulation and GI prophylaxis Hospitalist Physical - Constitutional Vitals: Temp Pulse Resp BP Pulse Ox 97.8 F 67 17 140/76 97 06/20/21 10:46 06/20/21 10:46 06/20/21 10:46 06/20/21 10:46 06/20/21 10:46 General appearance: Present: no acute distress, well-nourished HEART Score - HEART Score EKG: Non-specific Age: > 65 Risk factors: > 3 risk factors or hx of atherosclerotic disease Troponin: Troponin T < 0.010 ng/mL (0.00-0.029) 06/20/21 02:43 Troponin: < normal limit Results - Labs CBC & Chem 7: 06/20/21 02:43 06/20/21 02:43 Labs: Laboratory Last Values WBC 12.6 K/mm3 (4.5-11.0) H 06/20/21 02:43 RBC 4.42 M/mm3 (3.65-5.03) 06/20/21 02:43 Hgb 13.5 gm/dl (11.8-15.2) 06/20/21 02:43 Hct 40.3 % (35.5-45.6) 06/20/21 02:43 MCV 91 fl (84-94) 06/20/21 02:43 MCH 31 pg (28-32) 06/20/21 02:43 MCHC 34 % (32-34) 06/20/21 02:43 RDW 13.5 % (13.2-15.2) 06/20/21 02:43 Plt Count 272 K/mm3 (140-440) 06/20/21 02:43 Lymph % (Auto) 15.0 % (13.4-35.0) 06/20/21 02:43 [place] % (Auto) 6.9 % (0.0-7.3) 06/20/21 02:43 Eos % (Auto) 1.2 % (0.0-4.3) 06/20/21 02:43 Baso % (Auto) 0.9 % (0.0-1.8) 06/20/21 02:43 Lymph # (Auto) 1.9 K/mm3 (1.2-5.4) 06/20/21 02:43 [place] # (Auto) 0.9 K/mm3 (0.0-0.8) H 06/20/21 02:43 Eos # (Auto) 0.2 K/mm3 (0.0-0.4) 06/20/21 02:43 Baso # (Auto) 0.1 K/mm3 (0.0-0.1) 06/20/21 02:43 Seg Neutrophils % 76.0 % (40.0-70.0) H 06/20/21 02:43 Seg Neutrophils # 9.6 K/mm3 (1.8-7.7) H 06/20/21 02:43 PT 14.0 Sec. (12.2-14.9) 06/19/21 13:55 INR 1.02 (0.87-1.13) 06/19/21 13:55 APTT 29.1 Sec. (24.2-36.6) 06/19/21 13:55 D-Dimer 255.13 ng/mlDDU (0-234) H 06/19/21 13:55 Sodium 141 mmol/L (137-145) 06/20/21 02:43 Potassium 4.2 mmol/L (3.6-5.0) 06/20/21 02:43 Chloride 105.2 mmol/L (98-107) 06/20/21 02:43 Carbon Dioxide 27 mmol/L (22-30) 06/20/21 02:43 Anion Gap 13 mmol/L 06/20/21 02:43 BUN 18 mg/dL (9-20) 06/20/21 02:43 Creatinine 1.1 mg/dL (0.8-1.3) 06/20/21 02:43 Estimated GFR > 60 ml/min 06/20/21 02:43 BUN/Creatinine Ratio 16 % 06/20/21 02:43 Glucose 99 mg/dL (75-100) 06/20/21 02:43 Calcium 9.5 mg/dL (8.4-10.2) 06/20/21 02:43 Total Bilirubin 0.40 mg/dL (0.1-1.2) 06/20/21 02:43 AST 17 units/L (5-40) 06/20/21 02:43 ALT 15 units/L (7-56) 06/20/21 02:43 Alkaline Phosphatase 76 units/L (35-129) 06/20/21 02:43 Total Creatine Kinase 77 units/L (55-170) 06/20/21 02:43 CK-MB (CK-2) 3.0 ng/mL (0.0-4.0) 06/20/21 02:43 CK-MB (CK-2) Rel Index 3.8 (0-4) 06/20/21 02:43 Troponin T < 0.010 ng/mL (0.00-0.029) 06/20/21 02:43 Total Protein 6.6 g/dL (6.3-8.2) 06/20/21 02:43 Albumin 3.8 g/dL (3.9-5) L 06/20/21 02:43 Albumin/Globulin Ratio 1.4 % 06/20/21 02:43 [place]/IV: Voiding Method Toilet Active Medications - Current Medications Current Medications: Generic Name Dose Route Start Last Admin Trade Name Freq PRN Reason Stop Dose Admin Acetaminophen 650 mg 06/19/21 22:28 Acetaminophen 325 Mg Tab PO Q4H PRN Pain MILD(1-3)/Fever >100.5/MARINA Amlodipine Besylate 5 mg 06/20/21 10:00 06/20/21 10:20 Amlodipine 5 Mg Tab PO 5 mg QDAY JOSIAH Administration Aspirin 81 mg 06/20/21 10:00 06/20/21 10:21 Aspirin 81 Mg Tab Chew PO 81 mg QDAY JOSIAH Administration Atorvastatin Calcium 80 mg 06/20/21 22:00 Atorvastatin 40 Mg Tab PO QHS JOSIAH Clopidogrel Bisulfate 75 mg 06/20/21 10:00 06/20/21 10:25 Clopidogrel 75 Mg Tab PO Not Given QDAY JOSIAH Enoxaparin Sodium 40 mg 06/20/21 10:00 06/20/21 10:17 Enoxaparin 40 Mg/0.4 Ml Inj SUB-Q 40 mg QDAY JOSIAH Administration Ferrous Sulfate 325 mg 06/20/21 10:00 06/20/21 10:17 Ferrous Sulfate 325 Mg Tab PO 325 mg QDAY JOSIAH Administration Finasteride 5 mg 06/20/21 10:00 06/20/21 10:27 Finasteride 5 Mg Tab PO Not Given QDAY JOSIAH Hydromorphone HCl 0.5 mg 06/19/21 22:30 Hydromorphone 1 Mg/1 Ml Inj IV Q3H PRN Pain , Severe (7-10) Losartan Potassium 50 mg 06/20/21 10:00 06/20/21 10:21 Losartan 50 Mg Tab PO 50 mg BID JOSIAH Administration Ondansetron HCl 4 mg 06/19/21 22:30 Ondansetron 4 Mg/2 Ml Inj IV Q8H PRN Nausea And Vomiting Oxybutynin Chloride 5 mg 06/20/21 10:00 06/20/21 10:25 Oxybutynin 5 Mg Tab PO Not Given BID JOSIAH Oxycodone/Acetaminophen 1 tab 06/19/21 22:30 Oxycodone /Acetaminophen 5-325mg Tab PO Q6H PRN Pain, Moderate (4-6) Pantoprazole Sodium 40 mg 06/20/21 10:00 06/20/21 10:17 Pantoprazole 40 Mg Tab PO 40 mg DAILY JOSIAH Administration Sodium Chloride 10 ml 06/20/21 10:00 06/20/21 10:27 Sodium Chloride 0.9% 10 Ml Flush Syringe IV Not Given BID JOSIAH Sodium Chloride 10 ml 06/19/21 22:30 Sodium Chloride 0.9% 10 Ml Flush Syringe IV PRN PRN LINE FLUSH Tamsulosin HCl 0.4 mg 06/20/21 10:00 06/20/21 10:17 Tamsulosin 0.4 Mg Cap PO 0.4 mg QDAY JOSIAH Administration
--- NOTE | 2021-06-20 11:55 | Discharge Summary ---
Providers - Providers Date of Admission: 06/19/21 17:29 Date of discharge: 06/20/21 Attending physician: GAY ABARCA 06/19/21 22:30 Consult to Physician [CONS] Routine Comment: Consulting Provider: ADRIEL PABON Physician Instructions: Reason For Exam: Acute coronary syndrome Primary care physician: ADRIEL PABON Hospitalization Reason for admission: Intermittent chest pain of 3 days duration Condition: Stable Pertinent studies: Chest x-ray CTA chest Stress test Hospital course: Chest pain for 3 days 86-year-old male with history of coronary artery disease, hyperlipidemia, anemia, GERD, BPH and recent aortic valve replacement through the femoral artery in 2017 comes in for chest pain of 3 days duration. Chest pain is intermittent and radiating to her left arm. Chest pain is about 5 on a scale of 1-10. Patient went to play golf and her left arm pain moved to the chest increasing is retrosternal chest pressure. Chest pressure is relieved with rest and becomes worse with exertion. No nausea vomiting or diaphoresis. No shortness of breath. Patient is fully vaccinated against Covid. Follows with [facility] with Dr. Pabon. Patient was admitted appropriately managed evaluated by process control tech, subsequently underwent stress test which was negative for ischemia, noncardiac chest pain probably secondary to GERD, patient is already on Protonix Cardiology optimize medications, cleared for discharge advised to follow-up with primary care physician in private process control tech per schedule Today he is comfortable no new complaints vital signs stable physical examination prior to discharge is unremarkable Patient is hemodynamically and clinically stable at discharge If he has recurrent chest pain advised to see private GI for further evaluation and management Discharge diagnosis: -- Acute coronary syndrome Current Visit: Yes Status: Acute For Lexiscan in the morning Serial cardiac enzymes -- Coronary artery disease s/p CABG Current Visit: Yes Status: Chronic Patient had CABG in the past Continue aspirin and statins -- S/p TAVR (transcatheter aortic valve replacement), bioprosthetic Current Visit: Yes Status: Chronic -- Hyperlipidemia Current Visit: Yes Status: Chronic On statins-Lipitor 80 mg p.o. daily -- BPH (benign prostatic hyperplasia) Current Visit: Yes Status: Chronic Continue Flomax --GERD (gastroesophageal reflux disease) Current Visit: Yes Status: Acute --Anemia Current Visit: Yes Status: Chronic Plan to address problem: On ferrous gluconate Stable at discharge Final Discharge Diagnosis (Prints w/discharge instructions): Aortic valve replacement[TAVR]. Atypical chest pain. Stress test negative. Coronary artery disease. s/p CABG. BPH. Hypertension. Dyslipidemia Time spent for discharge: 35 min Core Measure Documentation - Palliative Care Palliative Care/ Comfort Measures: Not Applicable - Core Measures Any of the following diagnoses?: none Exam - Constitutional Vitals: Temp Pulse Resp BP Pulse Ox 97.8 F 67 17 140/76 97 06/20/21 10:46 06/20/21 10:46 06/20/21 10:46 06/20/21 10:46 06/20/21 10:46 General appearance: Present: no acute distress, well-nourished - EENT Eyes: Present: PERRL, EOM intact - Neck Neck: Present: supple, normal ROM - Respiratory Respiratory effort: normal Respiratory: bilateral: diminished, negative: rales, rhonchi, wheezing - Cardiovascular Rhythm: regular Heart Sounds: Present: S1 & S2 - Extremities Extremities: no ischemia, No edema - Abdominal General gastrointestinal: Present: soft, non-tender, non-distended, normal bowel sounds - Integumentary Integumentary: Present: clear, warm - Musculoskeletal Musculoskeletal: strength equal bilaterally - Psychiatric Psychiatric: appropriate mood/affect, cooperative - Neurologic Neurologic: CNII-XII intact, moves all extremities Plan Activity: advance as tolerated Diet: other (Cardiac diet) Additional Instructions: Advised to continue all the home medications as before. If you have worsening symptoms contact MD or go to emergency room as needed. If your symptoms do not improve you may need to see private GI to evaluate for GI causes of chest pain as needed Follow up with: ADRIEL PABON MD [Primary Care Provider] - 3-5 Days Prescriptions: Aspirin [Aspirin BABY CHEW TAB] 81 mg PO QDAY #30 tab.chew AtorvaSTATin [Lipitor] 80 mg PO QHS #30 tab Finasteride [Proscar] 5 mg PO QDAY #30 tablet
[2021-06-20 13:20] VITALS: BP 150/61
--- NOTE | 2021-06-21 08:54 | Electrocardiograph Report ---
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
--- NOTE | 2021-06-21 09:21 | Electrocardiograph Report ---
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
== END 2021-06-20 13:26 | disposition home or self-care (01) ==
LOC: ED 12:53 → 4A 17:29
PROVIDERS: ADMIT Internal Medicine; ATTEND Internal Medicine
DX: I24.9 Acute ischemic heart disease, unspecified (principal); I25.10 Atherosclerotic heart disease of native coronary artery without angina pectoris; N40.0 Benign prostatic hyperplasia without lower urinary tract symptoms; K21.9 Gastro-esophageal reflux disease without esophagitis; E78.2 Mixed hyperlipidemia; D64.9 Anemia, unspecified; I35.0 Nonrheumatic aortic (valve) stenosis; K64.8 Other hemorrhoids; M19.90 Unspecified osteoarthritis, unspecified site; Z79.899 Other long term (current) drug therapy; Z98.890 Other specified postprocedural states; Z95.1 Presence of aortocoronary bypass graft; Z87.891 Personal history of nicotine dependence; Z79.82 Long term (current) use of aspirin; Z79.02 Long term (current) use of antithrombotics/antiplatelets
CPT/HCPCS: 36415; 71046; 71275; 78452; 80053; 82550; 82553; 84484; 85025; 85379; 85610; 85730; 93005; 93017; 96372; 99285; A9502; G0378; J1650; J2785; Q9967